=== PATIENT | male | born 1990 | race Caucasian/White ===

== ENCOUNTER 2024-02-11 08:14 | Emergency (ER) | payer SELFPAY ==
[~2024-02-11] VITALS: Ht 175.3 cm; Wt 86.2 kg
[2024-02-11 08:27] VITALS: BP 156/97; TEMP 97.9; O2SAT 99
== END 2024-02-11 08:39 | disposition left against medical advice (07) ==
LOC: ER 08:38
DX: F22 Delusional disorders (principal); Z53.21 Procedure and treatment not carried out due to patient leaving prior to being seen by health care provider

== ENCOUNTER 2024-12-03 14:10 | Emergency (ER) | payer OTHER ==
[~2024-12-03] VITALS: Ht 175.3 cm; Wt 96.2 kg
[2024-12-03] MEDS ORDERED: OLANZAPINE 10 MG VIAL IM ONE (15:42)
[2024-12-03] MEDS: OLANZAPINE 10 MG VIAL IM ONE (15:48)
[2024-12-03 16:23] LABS: PLATELET COUNT (AUTO) 243 K/uL (150-450); RED BLOOD CELL COUNT(AUTO) 4.93 MIL/uL (4.5-6.0); RED CELL DISTRIBUTION WIDTH 13.0 % (11.5-15.0); WHITE BLOOD COUNT (AUTO) 5.3 K/uL (4.3-11.0)
[2024-12-03 16:31] LABS: CALCIUM, SERUM 8.9 mg/dL (8.5-10.1); CREATININE 0.9 mg/dL (0.6-1.3); SODIUM SERUM 144 mmol/L (136-145); UREA NITROGEN, BLOOD 10 mg/dL (7-18)
[2024-12-03 16:36] LABS: ASPARTATE AMINOTRANSFERASE 24 U/L (15-37); TOTAL PROTEIN, SERUM 7.9 g/dL (6.4-8.2)
[2024-12-03 18:20] LABS: APPEARANCE,URINE CLEAR (CLEAR); BLOOD, URINE Negative Ery/uL (NEGATIVE); LEUKOCYTE ESTERASE ,URINE Negative (NEGATIVE); NITRITE, URINE NEGATIVE (NEGATIVE); UGLUCOSE Negative (NEGATIVE)
[2024-12-03 18:23] LABS: AMPHETAMINE, URINE NEGATIVE (NEGATIVE); BARBITURATE, URINE NEGATIVE (NEGATIVE); BENZODIAZEPINE, URINE NEGATIVE (NEGATIVE); CANNABINOID, URINE NEGATIVE (NEGATIVE); COCCAINE, URINE NEGATIVE (NEGATIVE); OPIATE, URINE NEGATIVE (NEGATIVE)
[2024-12-04 11:00] VITALS: BP 116/83; TEMP 98.6; O2SAT 96
== END 2024-12-04 14:09 ==
LOC: ER 14:15
DX: F20.0 Paranoid schizophrenia (principal); R45.851 Suicidal ideations; F10.10 Alcohol abuse, uncomplicated; Z20.822 Contact with and (suspected) exposure to COVID-19; Y90.9 Presence of alcohol in blood, level not specified
CPT/HCPCS: 99285; 96372; 85025; 80048; 80076; 36415; 80143; 80307; 81003; 87426; J3490